=== PATIENT | female | born 1990 | race Caucasian/White ===

== ENCOUNTER 2020-02-05 06:51 | Day surgery (SDC) | payer BC, MEDICAID ==
[2020-01-29 14:07] LABS: BASOPHILS # (AUTO) 0.1 X10'3 (0-0.2); BASOPHILS % (AUTO) 1.3 % (0-1); EOSINOPHILS # (AUTO) 0.4 X10'3 (0-0.9); EOSINOPHILS % (AUTO) 4.1 % (0-6); LYMPHOCYTES # (AUTO) 2.4 X10'3 (1.1-4.8); LYMPHOCYTES % (AUTO) 23.7 % (21-51); MEAN CORPUSCULAR HEMOGLOBIN 29.7 PG (27.0-31.0); MEAN CORPUSCULAR HGB CONC 33.9 g/dL (33.0-36.5); MEAN CORPUSCULAR VOLUME 87.6 FL (78-98); MEAN PLATELET VOLUME 8.8 FL (7.4-10.4); MONOCYTES # (AUTO) 0.7 X10'3 (0-0.9); MONOCYTES % (AUTO) 6.6 % (2-12); NEUTROPHILS # (AUTO) 6.6 X10'3 (1.8-7.7); NEUTROPHILS % (AUTO) 64.3 % (42-75); PRE OP HEMATOCRIT 39.8 % (35.0-45.0); PRE OP HEMOGLOBIN 13.5 g/dL (12.0-16.0); PRE OP PLATELET COUNT 311 X10'3 (140-440); RED BLOOD COUNT 4.54 X10'6 (4.20-5.60); RED CELL DISTRIBUTION WIDTH 12.8 % (11.5-14.5)
[2020-01-29 14:26] LABS: ALBUMIN 4.1 G/DL (3.4-5.0); ALKALINE PHOSPHATASE 59 IU/L (46-116); BLOOD UREA NITROGEN 16 MG/DL (7-18); BUN/CREATININE RATIO 28.6 (6.6-38.0); CALCIUM 9.4 MG/DL (8.5-10.1); CHLORIDE 103 MMOL/L (99-107); CREATININE 0.56 MG/DL (0.40-0.90); PRE OP ALT 21 U/L (30-65); PRE OP ANION GAP 8 (8-16); PRE OP AST 14 U/L (10-37); PRE OP BILIRUB, TOTAL 0.5 MG/DL (0.0-1.0); PRE OP GLUCOSE 96 MG/DL (70-104); PRE OP POTASSIUM 4.1 MMOL/L (3.4-5.1); PRE OP SODIUM 137 MMOL/L (135-145); TOTAL CARBON DIOXIDE 26.5 MMOL/L (24-32); TOTAL PROTEIN 8.4 G/DL (6.4-8.2); eGFR > 90 ML/MIN
[2020-02-05] VITALS (16 sets, daily range): BP systolic 97–131; BP diastolic 60–79
[~2020-02-05] VITALS: Ht 154.9 cm; Wt 49.4 kg
[~2020-02-05 06:51] MED LIST: NO HOME MEDS; bacitracin 15gm ointment TP ONE; ceFAZolin 1GM/D5W- ADD-VANTAGE 50 ML IV ONE; famotidine 20mg tablet PO ONE; ringers solution, lacted 1,000 ML IV SCH
[2020-02-05] MEDS ORDERED: fentaNYL/PF 50MCG/1 ML 2ML syringe ONE ×3 (08:44→12:12)
[2020-02-05] MEDS ORDERED: midazolam 2 mg/2 ml injection ONE (08:44)
[2020-02-05] MEDS ORDERED: ROPIVAcaine 0.5% (5mg/ml) 30ml vial ONE ×2 (08:44)
[2020-02-05] MEDS ORDERED: dexamethasone sod phosphate 4mg/ml inj. ONE (08:45)
[2020-02-05] MEDS ORDERED: ondansetron/PF 4mg/2ml inj ONE (08:45)
[2020-02-05] MEDS ORDERED: propofol inj 20 ML IV ONE (08:45)
[2020-02-05] MEDS ORDERED: LIDOcaine 2% (20mg/ml) 5ml vial ONE (08:45)
[2020-02-05] MEDS ORDERED: sevoflurane 250ml liquid IH ONE (09:00)
[2020-02-05] MEDS ORDERED: acetaminophen 1,000mg/100ml IV 100 ML IV ONE (11:42)
[2020-02-05] MEDS ORDERED: ketorolac trometh. 30mg/ml inj. ONE (11:43)
--- NOTE | 2020-02-05 12:35 | NUR ---
Received from OR via [facility], accompanied by Anesthesiologist DR TEE and report given by Anesthesiologist. PT DROWSY, DENIES PAIN, BILAT LE'S W/SPLINTS/INES WRAP COVERING FROM TOES TO BELOW KNEES, CDI, TOES ON BILAT FEET PWD, DIRECTOR DERMATOLOGY 1-2 SECONDS. PT RESTING COMFORTABLE. Addendum: 02/05/20 at 1256 by Bridget Eric RN Amended: Links added.
[2020-02-05] MEDS ORDERED: ringers solution, lacted 1,000 ML IV SCH (12:47)
[2020-02-05] MEDS ORDERED: ondansetron/PF 4mg/2ml inj IV PRN (12:50)
[2020-02-05] MEDS ORDERED: labetalol 20mg/4ml (5mg/ml) syringe IV PRN (12:50)
[2020-02-05] MEDS ORDERED: morphine 4 MG/ML inj SYRINge IV PRN (12:50)
[2020-02-05] MEDS ORDERED: hydrALAZINE 20mg/ml inj. IV PRN (12:50)
[2020-02-05] MEDS ORDERED: morphine 2 MG/ML inj. syringe IV PRN (12:50)
[2020-02-05] MEDS ORDERED: fentaNYL/PF 50MCG/1 ML 2ML syringe IV PRN ×2 (12:50)
--- NOTE | 2020-02-05 15:35 | NUR ---
PT REQUESTED POSSIBLE REHAB ADMISSION, SPOKE W/DR ORANTES AND DISCHARGE PLANNING, PT NOT ELIGIBLE, PTS MOTHER CALLED AND IS WILLING TO TAKE PT HOME W/HER AND TAKE CARE OF PT. D/C INSTRUCTIONS GIVEN AND GONE OVER W/PT WHO VERBALIZED UNDERSTANDING, PT ABLE TO SELF LIFT HERSELF FROM BED TO W/C W/O DIFFICULTY, PT D/CD TO HOME VIA PRIVATE VEHICLE W/O INCIDENT. Addendum: 02/05/20 at 1637 by Bridget Eric RN Amended: Links added.
== END 2020-02-05 15:35 | disposition home or self-care (01) ==
LOC: PAS 06:51
PROVIDERS: ATTEND Podiatrist Foot & Ankle Surgery
DX: S92.061A Displaced intraarticular fracture of right calcaneus, initial encounter for closed fracture (principal); S92.062A Displaced intraarticular fracture of left calcaneus, initial encounter for closed fracture; F41.9 Anxiety disorder, unspecified; F32.9 Major depressive disorder, single episode, unspecified; Z87.891 Personal history of nicotine dependence; Z98.51 Tubal ligation status; Z11.59 Encounter for screening for other viral diseases; G89.18 Other acute postprocedural pain; Z79.899 Other long term (current) drug therapy; Z72.89 Other problems related to lifestyle; Z79.82 Long term (current) use of aspirin; X58.XXXA Exposure to other specified factors, initial encounter; Y93.89 Activity, other specified; Y92.89 Other specified places as the place of occurrence of the external cause; Y99.8 Other external cause status
CPT/HCPCS: 28415; 36415; 64445; 64447; 73650; 76000; 76942; 80053; 82948; 85025; A6223; C1713; C9359; J0131; J0690; J1100; J1885; J2001; J2250; J2405; J2704; J3010; J7120; U0003; A4215; A4618; A6253; A6449; A7000; J2795